=== PATIENT | female | born 1980 | race American Indian/Alaskan Native ===

== ENCOUNTER 2018-01-13 07:47 | Emergency (ER) | payer SELFPAY ==
[2018-01-13] MEDS ORDERED: TORADOL IM ONE (10:46)
[2018-01-13] MEDS ORDERED: NORCO 7.5/325 PO ONE (10:46)
--- NOTE | 2018-01-13 10:51 | Emergency Department Report ---
ED Upper Extremity Inj HPI - General Chief Complaint: Extremity Injury, Upper Stated Complaint: RIGHT ARM INJURY Time Seen by Provider: 01/13/18 10:46 Source: patient Mode of arrival: Ambulatory Limitations: No Limitations - History of Present Illness Initial Comments: This is a 37-year-old male nontoxic, well nourished in appearance, no acute signs of distress presents to the ED with c/o of acute on chronic right elbow pain she has a history of elbow fracture and yesterday has been working at [employer] [address] and was lifting boxes and developed pain. Patient denies any direct trauma. Patient denies any radiation of pain. Patient stated has decreased range of motion due to pain. Patient denies any joint redness, joint swelling, fever, chills, nausea, vomiting, chest pain or shortness breath. Patient denies abnormal or decreased gait. Patient denies any allergies or PMH. MD Complaint: Injury to:: right, elbow -: days(s) (1) Other Extremity Injury: Elbow: Right Other Injuries: none Place: work Severity scale (0 -10): 8 Improves With: immobilization Worsens With: movement of extremity Associated Symptoms: denies other symptoms. denies: weakness, numbness, neck pain, suspects foreign body, nausea/vomiting, heard/felt popping sensat - Related Data Previous Rx's Medication Instructions Recorded Last Taken Type HYDROcodone/APAP 5-325 [[place] 1 each PO Q8HR PRN #12 tablet 11/07/13 Unknown Rx 5-325 mg TAB] Ibuprofen [Motrin] 800 mg PO Q8HR PRN #10 tablet 09/26/15 Unknown Rx Promethazine /Codeine 5 ml PO Q6H PRN #90 ml 09/26/15 Unknown Rx [Phenergan/Codeine 6.25-10 mg/5Ml] guaiFENesin [Mucinex] 600 mg PO Q6HR PRN #15 tablet.er 09/26/15 Unknown Rx Acetaminophen/Codeine [Tylenol #3] 1 tab PO Q6H PRN #15 tab 10/06/15 Unknown Rx Cephalexin [Keflex] 500 mg PO Q12HR #14 cap 10/06/15 Unknown Rx Acetaminophen/Codeine [Tylenol 1 tab PO Q6H PRN #15 tab 01/13/18 Unknown Rx /Codeine # 3 tab] Ibuprofen [Motrin] 600 mg PO Q8H PRN #30 tablet 01/13/18 Unknown Rx Allergies Allergy/AdvReac Type Severity Reaction Status Date / Time No Known Allergies Allergy Unverified 11/07/13 13:25 ED Review of Systems ROS: Stated complaint: RIGHT ARM INJURY Other details as noted in HPI Constitutional: denies: chills, fever Eyes: denies: eye pain, eye discharge, vision change ENT: denies: ear pain, throat pain Respiratory: denies: cough, shortness of breath, wheezing Cardiovascular: denies: chest pain, palpitations Endocrine: no symptoms reported Gastrointestinal: denies: abdominal pain, nausea, diarrhea Genitourinary: denies: urgency, dysuria, discharge Musculoskeletal: arthralgia. denies: back pain, joint swelling Skin: denies: rash, lesions Neurological: denies: headache, weakness, paresthesias Psychiatric: denies: anxiety, depression Hematological/Lymphatic: denies: easy bleeding, easy bruising ED Past Medical Hx - Past Medical History Previous Medical History?: Yes Additional medical history: right arm injury - Surgical History Past Surgical History?: Yes Additional Surgical History: right arm - Social History Smoking Status: Current Every Day Smoker Substance Use Type: Alcohol - Medications Home Medications: Home Medications Medication Instructions Recorded Confirmed Last Taken Type HYDROcodone/APAP 5-325 [[place] 1 each PO Q8HR PRN #12 tablet 11/07/13 Unknown Rx 5-325 mg TAB] Ibuprofen [Motrin] 800 mg PO Q8HR PRN #10 tablet 09/26/15 Unknown Rx Promethazine /Codeine 5 ml PO Q6H PRN #90 ml 09/26/15 Unknown Rx [Phenergan/Codeine 6.25-10 mg/5Ml] guaiFENesin [Mucinex] 600 mg PO Q6HR PRN #15 tablet.er 09/26/15 Unknown Rx Acetaminophen/Codeine [Tylenol #3] 1 tab PO Q6H PRN #15 tab 10/06/15 Unknown Rx Cephalexin [Keflex] 500 mg PO Q12HR #14 cap 10/06/15 Unknown Rx Acetaminophen/Codeine [Tylenol 1 tab PO Q6H PRN #15 tab 01/13/18 Unknown Rx /Codeine # 3 tab] Ibuprofen [Motrin] 600 mg PO Q8H PRN #30 tablet 01/13/18 Unknown Rx ED Physical Exam - General Limitations: No Limitations General appearance: alert, in no apparent distress - Head Head exam: Present: atraumatic, normocephalic - Eye Eye exam: Present: normal appearance Pupils: Present: normal accommodation - ENT ENT exam: Present: normal exam, mucous membranes moist - Neck Neck exam: Present: normal inspection, full ROM. Absent: tenderness, meningismus, lymphadenopathy - Respiratory Respiratory exam: Present: normal lung sounds bilaterally. Absent: respiratory distress, wheezes, rales, rhonchi, stridor - Cardiovascular Cardiovascular Exam: Present: regular rate, normal rhythm, normal heart sounds. Absent: irregular rhythm, systolic murmur, diastolic murmur, rubs, gallop - GI/Abdominal GI/Abdominal exam: Present: soft, normal bowel sounds - Extremities Exam Extremities exam: Present: normal inspection, full ROM, tenderness, normal capillary refill. Absent: joint swelling - Expanded Upper Extremity Exam Right General: Present: normal inspection Shoulder Exam: Present: normal inspection, full ROM. Absent: tenderness, swelling, abrasion, laceration, ecchymosis, deformity, crepidus, dislocation, erythema, tenderness over AC joint Upper Arm exam: Present: normal inspection, full ROM. Absent: tenderness, swelling, abrasion, laceration, ecchymosis, deformity, crepidus, dislocation, erythema Elbow exam: Present: normal inspection, full ROM (with pain), tenderness. Absent: swelling, abrasion, laceration, ecchymosis, deformity, crepidus, dislocation, erythema, effusion, pain w/ pronation/supination, tenderness over radial head Forearm Wrist exam: Present: normal inspection, full ROM. Absent: tenderness, swelling, abrasion, laceration, ecchymosis, deformity, crepidus, dislocation, erythema, tenderness over anatomical snuff box, pain with axial thumb loading Hand Wrist exam: Present: normal inspection, full ROM. Absent: tenderness, swelling Neuro motor exam: Present: wrist extension intact, thumb opposition intact, thumb IP flexion intact, thumb adduction intact, fingers 2-5 abduction intact Neurosensory exam: Present: 2-point discrimination, radial nerve intact, ulnar nerve intact Vascular: Present: vascular compromise, normal capillary refill, radial pulse, brachial pulse, ulnar pulse - Back Exam Back exam: Present: normal inspection, full ROM - Neurological Exam Neurological exam: Present: alert, oriented X3, normal gait - Psychiatric Psychiatric exam: Present: normal affect, normal mood - Skin Skin exam: Present: warm, dry, intact, normal color. Absent: rash ED Course Vital Signs 01/13/18 08:20 Temperature 98.2 F Pulse Rate 88 Respiratory 20 Rate Blood Pressure 148/83 O2 Sat by Pulse 100 Oximetry - Reevaluation(s) Reevaluation #1: 01/13/18 10:51 Patient is speaking in full sentences with no signs of distress noted. ED Medical Decision Making - Medical Decision Making This is a 37-year-old female that presents with right elbow strain. Patient is stable and was examined by me. I referred patient to an orthopedic doctor for further evaluation for possible MRI. X-ray has been obtained and dictated by the radiologist. Patient is notified of the x-ray report with noted by the patient. Patient does have normal ROM with slight pain discomfort and with no tenderness and no joint swelling. No ecchymosis. no joint redness or swelling. Not warm to touch. No signs of cellulites present. Patient received a shoulder sling for pain comfort. Patient was instructed to RICE therapy. Patient received Toradol and [place] for pain. Patients family member is at bedside and stated she will drive the patient home after discharge due to possible drowsiness of [place]. Patient is discharged with Motrin. At time of discharge, the patient does not seem toxic or ill in appearance. No acute signs of distress noted. Patient agrees to discharge treatment plan of care. No further questions noted by the patient. Critical care attestation.: If time is entered above; I have spent that time in minutes in the direct care of this critically ill patient, excluding procedure time. ED Disposition Clinical Impression: Strain of right elbow Qualifiers: Encounter type: initial encounter Qualified Code(s): S56.911A - Strain of unspecified muscles, fascia and tendons at forearm level, right arm, initial encounter Disposition: - TO HOME OR SELFCARE Is pt being admited?: No Does the pt Need Aspirin: No Condition: Stable Instructions: RICE Therapy (ED), Ibuprofen (By mouth), Acetaminophen/Codeine ( By mouth) Additional Instructions: Follow-up with a orthopedic doctor in 3-5 days or if symptoms worsen and continue return to emergency room as soon as possible. Do not operate any machinery when you are taking Tylenol with codeine as this can cause drowsiness. Prescriptions: Acetaminophen/Codeine [Tylenol /Codeine # 3 tab] 1 tab PO Q6H PRN #15 tab PRN Reason: Pain Ibuprofen [Motrin] 600 mg PO Q8H PRN #30 tablet PRN Reason: Pain Referrals: PRIMARY CAREMD [Primary Care Provider] - 3-5 Days ALIE BOWMAN MD [Staff Physician] - 3-5 Days [facility] [Outside] - 3-5 Days [facility] [Outside] - 3-5 Days Forms: Work/School Release Form(ED)
--- NOTE | 2018-01-13 12:58 | XRay Report ---
RIGHT ELBOW RADIOGRAPHS INDICATION: Elbow pain. COMPARISON: 11/07/2013. FINDINGS: Attempted AP, lateral and oblique right elbow radiographs again suggest chronic arthropathic changes with spurring/possible deformity of the coronoid process and also the olecranon. Medial and lateral epicondyles of the humerus appear intact. Radial head deformity/possible postsurgical absence again noted. Elbow articulation grossly intact. No convincing abnormal elbow fat pad sign, though mild diffuse elbow soft tissue swelling not excluded. CONCLUSION: Chronic right elbow changes again noted, as described without definite acute bony abnormality or dislocation, as described. Please correlate. Thank you for the opportunity to participate in this patient's care.
[2018-01-13 14:03] VITALS: BP 107/60
== END 2018-01-13 14:03 | disposition home or self-care (01) ==
LOC: ED 07:47
DX: S56.911A Strain of unspecified muscles, fascia and tendons at forearm level, right arm, initial encounter (principal); F17.200 Nicotine dependence, unspecified, uncomplicated; X50.0XXA Overexertion from strenuous movement or load, initial encounter; Y93.89 Activity, other specified; Y92.89 Other specified places as the place of occurrence of the external cause; Y99.8 Other external cause status
CPT/HCPCS: 73080; 96372; 99284; J1885

== ENCOUNTER 2018-11-12 01:41 | Emergency (ER) | payer SELFPAY ==
[2018-11-12 02:41] VITALS: BP 115/72
--- NOTE | 2018-11-12 05:04 | Emergency Department Report ---
ED General Adult HPI - General Chief complaint: Eye Problems Stated complaint: EYE/THROAT PAIN Time Seen by Provider: 11/12/18 04:52 Source: patient Mode of arrival: Ambulatory Limitations: No Limitations - History of Present Illness Initial comments: Pt is a 38 yo female who presents to the ED with c/o itchy water eyes that began three days ago. She has associated frontal BRADY, sinus pressure, and itchy throat. She denies any fever or rhinorrhea. The patient states she has a hx of seasonal allergies. She has been taking benadryl without much relief. Severity scale (0 -10): 10 - Related Data Previous Rx's Medication Instructions Recorded Last Taken Type Ibuprofen [Motrin 800 MG tab] 800 mg PO Q8HR PRN #10 tablet 09/26/15 Unknown Rx guaiFENesin [Mucinex] 600 mg PO Q6HR PRN #15 tablet.er 09/26/15 Unknown Rx Ibuprofen [Motrin 600 MG tab] 600 mg PO Q8H PRN #30 tablet 01/13/18 Unknown Rx Cetirizine HCl [ZyrTEC] 10 mg PO DAILY #30 tab.rapdis 11/12/18 Unknown Rx Fluticasone [Flonase] 1 spray NS QDAY #1 bottle 11/12/18 Unknown Rx Allergies Allergy/AdvReac Type Severity Reaction Status Date / Time No Known Allergies Allergy Unverified 11/07/13 13:25 ED Review of Systems ROS: Stated complaint: EYE/THROAT PAIN Other details as noted in HPI Comment: All other systems reviewed and negative ED Past Medical Hx - Past Medical History Previous Medical History?: Yes Additional medical history: right arm injury - Surgical History Additional Surgical History: right arm - Social History Smoking Status: Current Every Day Smoker Substance Use Type: Alcohol - Medications Home Medications: Home Medications Medication Instructions Recorded Confirmed Last Taken Type Ibuprofen [Motrin 800 MG tab] 800 mg PO Q8HR PRN #10 tablet 09/26/15 Unknown Rx guaiFENesin [Mucinex] 600 mg PO Q6HR PRN #15 tablet.er 09/26/15 Unknown Rx Ibuprofen [Motrin 600 MG tab] 600 mg PO Q8H PRN #30 tablet 01/13/18 Unknown Rx Cetirizine HCl [ZyrTEC] 10 mg PO DAILY #30 tab.rapdis 11/12/18 Unknown Rx Fluticasone [Flonase] 1 spray NS QDAY #1 bottle 11/12/18 Unknown Rx ED Physical Exam - General Limitations: No Limitations General appearance: alert, in no apparent distress - Head Head exam: Present: atraumatic, normocephalic - Eye Eye exam: Present: normal appearance, PERRL, EOMI, other (no drainage, crusting, or matting of the eyelashes). Absent: scleral icterus, conjunctival injection, nystagmus, periorbital swelling, periorbital tenderness - ENT ENT exam: Present: normal orophraynx, other (left turbinate is pale and boggy, no purulent drainage, no sinus TTP bilaterally) - Respiratory Respiratory exam: Present: normal lung sounds bilaterally. Absent: respiratory distress, wheezes, rales, rhonchi, stridor, chest wall tenderness, accessory muscle use, decreased breath sounds, prolonged expiratory - Cardiovascular Cardiovascular Exam: Present: regular rate, normal rhythm, normal heart sounds. Absent: systolic murmur, diastolic murmur, rubs, gallop - Neurological Exam Neurological exam: Present: alert, oriented X3 - Psychiatric Psychiatric exam: Present: normal affect, normal mood - Skin Skin exam: Present: warm, dry, intact ED Course Vital Signs 11/12/18 01:46 Temperature 98.5 F Pulse Rate 95 H Respiratory 18 Rate Blood Pressure 115/72 O2 Sat by Pulse 98 Oximetry ED Medical Decision Making - Medical Decision Making Pt is a 38 yo female who presents to the ED with c/o itchy water eyes that began three days ago. She has associated frontal BRADY, sinus pressure, and itchy throat. She denies any fever or rhinorrhea. The patient states she has a hx of seasonal allergies. She has been taking benadryl without much relief. examination consistent with seasonal allergies and allergic rhinitis. VSS. no sinus TTP no purulent drainage from the bilateral nares, no conjunctival injection or drainage, no fever. Will give pt zyrtec and flonase. Advised pt to follow up with her PCP in the next 2-3 days. Return to the ED for any new or worsening symptoms. - Differential Diagnosis allergic rhinits, seasonal allergies, conjunctivitis, URI Critical care attestation.: If time is entered above; I have spent that time in minutes in the direct care of this critically ill patient, excluding procedure time. ED Disposition Clinical Impression: Seasonal allergies Allergic rhinitis Qualifiers: Allergic rhinitis trigger: pollen Allergic rhinitis seasonality: seasonal Qualified Code(s): J30.1 - Allergic rhinitis due to pollen Disposition: DC- TO HOME OR SELFCARE Is pt being admited?: No Does the pt Need Aspirin: No Condition: Stable Instructions: Allergies (ED), Allergic Rhinitis (ED) Additional Instructions: Please use medication as prescribed. Take tylenol or ibuprofen as needed. Follow up with your primary care doctor in the next 2-3 days. Return to the emergency room for any new or worsening symptoms. Prescriptions: Fluticasone [Flonase] 1 spray NS QDAY #1 bottle Cetirizine HCl [ZyrTEC] 10 mg PO DAILY #30 tab.rapdis Referrals: MARY TERAN MD [Primary Care Provider] - 2-3 Days Time of Disposition: 05:05 Print Language: BOTSWANAN
== END 2018-11-12 05:18 | disposition home or self-care (01) ==
LOC: ED 01:41
DX: J30.2 Other seasonal allergic rhinitis (principal); J30.9 Allergic rhinitis, unspecified; F17.200 Nicotine dependence, unspecified, uncomplicated
CPT/HCPCS: 99282

== ENCOUNTER 2019-01-12 11:21 | Emergency (ER) | payer OTHER ==
[2019-01-12 11:32] VITALS: BP 135/82
--- NOTE | 2019-01-12 11:45 | Emergency Department Report ---
ED General Adult HPI - General Chief complaint: Nausea/Vomiting/Diarrhea Stated complaint: VOMITTING/DIARRHEA Time Seen by Provider: 01/12/19 11:41 Source: patient Mode of arrival: Ambulatory Limitations: No Limitations - Related Data Previous Rx's Medication Instructions Recorded Last Taken Type Ibuprofen [Motrin 800 MG tab] 800 mg PO Q8HR PRN #10 tablet 09/26/15 Unknown Rx guaiFENesin [Mucinex] 600 mg PO Q6HR PRN #15 tablet.er 09/26/15 Unknown Rx Ibuprofen [Motrin 600 MG tab] 600 mg PO Q8H PRN #30 tablet 01/13/18 Unknown Rx Cetirizine HCl [ZyrTEC] 10 mg PO DAILY #30 tab.rapdis 11/12/18 Unknown Rx Fluticasone [Flonase] 1 spray NS QDAY #1 bottle 11/12/18 Unknown Rx Ondansetron [Zofran ODT TAB] 8 mg PO Q12HR #14 tab.rapdis 01/12/19 Unknown Rx Allergies Allergy/AdvReac Type Severity Reaction Status Date / Time Latex, Natural Rubber Allergy Rash Verified 01/12/19 11:24 ED Review of Systems ROS: Stated complaint: VOMITTING/DIARRHEA Other details as noted in HPI ED Past Medical Hx - Past Medical History Previous Medical History?: No Additional medical history: right arm injury - Surgical History Past Surgical History?: Yes Additional Surgical History: right arm - Social History Smoking Status: Never Smoker Substance Use Type: None - Medications Home Medications: Home Medications Medication Instructions Recorded Confirmed Last Taken Type Ibuprofen [Motrin 800 MG tab] 800 mg PO Q8HR PRN #10 tablet 09/26/15 Unknown Rx guaiFENesin [Mucinex] 600 mg PO Q6HR PRN #15 tablet.er 09/26/15 Unknown Rx Ibuprofen [Motrin 600 MG tab] 600 mg PO Q8H PRN #30 tablet 01/13/18 Unknown Rx Cetirizine HCl [ZyrTEC] 10 mg PO DAILY #30 tab.rapdis 11/12/18 Unknown Rx Fluticasone [Flonase] 1 spray NS QDAY #1 bottle 11/12/18 Unknown Rx Ondansetron [Zofran ODT TAB] 8 mg PO Q12HR #14 tab.rapdis 01/12/19 Unknown Rx ED Physical Exam - General Limitations: No Limitations General appearance: alert, in no apparent distress - Head Head exam: Present: atraumatic, normocephalic - Eye Eye exam: Present: normal appearance - ENT ENT exam: Present: mucous membranes moist - Neck Neck exam: Present: normal inspection - Respiratory Respiratory exam: Present: normal lung sounds bilaterally. Absent: respiratory distress - Cardiovascular Cardiovascular Exam: Present: regular rate, normal rhythm. Absent: systolic murmur, diastolic murmur, rubs, gallop - GI/Abdominal GI/Abdominal exam: Present: soft, normal bowel sounds - Extremities Exam Extremities exam: Present: normal inspection - Back Exam Back exam: Present: normal inspection - Neurological Exam Neurological exam: Present: alert, oriented X3 - Psychiatric Psychiatric exam: Present: normal affect, normal mood - Skin Skin exam: Present: warm, dry, intact, normal color. Absent: rash ED Course Vital Signs 01/12/19 11:30 Temperature 98.3 F Pulse Rate 80 Respiratory 16 Rate Blood Pressure 135/82 [Left] O2 Sat by Pulse 100 Oximetry Critical care attestation.: If time is entered above; I have spent that time in minutes in the direct care of this critically ill patient, excluding procedure time. ED Disposition Clinical Impression: H/O nausea and vomiting Disposition: DC-01 TO HOME OR SELFCARE Is pt being admited?: No Does the pt Need Aspirin: No Condition: Stable Instructions: Acute Nausea and Vomiting (ED) Referrals: [facility] [Provider Group] - 3-5 Days Forms: Work/School Release Form(ED)
== END 2019-01-12 12:01 | disposition home or self-care (01) ==
LOC: ED 11:21
DX: R11.2 Nausea with vomiting, unspecified (principal); Z79.899 Other long term (current) drug therapy
CPT/HCPCS: 99282

== ENCOUNTER 2021-06-11 20:52 | Emergency (ER) | payer SELFPAY ==
--- NOTE | 2021-06-11 22:04 | Emergency Department Report ---
ED Psych HPI - General Chief Complaint: Psych Stated Complaint: 1013/MH Time Seen by Provider: 06/11/21 21:46 Source: police Mode of arrival: Ambulatory - History of Present Illness Initial Comments: Patient is 40 years old female with no significant past medical history. Patient brought to the emergency room by police for mental health evaluation. Patient was found in walking in the middle of the street. Patient stated that she trying to kill herself. Patient stated that she lost her peripheral vision 3 months ago and does make her very depressed. Patient denied any history of depression or bipolar or any psychiatric problem before. She also denied any auditory or visual hallucination. No homicidal ideation. MD Complaint: suicidal ideation, feels depressed Associated Psychiatric Symptoms: depression, suicidal ideation - Related Data Previous Rx's Medication Instructions Recorded Last Taken Type Ibuprofen [Motrin 800 MG tab] 800 mg PO Q8HR PRN #10 tablet 09/26/15 Unknown Rx guaiFENesin [Mucinex] 600 mg PO Q6HR PRN #15 tablet.er 09/26/15 Unknown Rx Ibuprofen [Motrin 600 MG tab] 600 mg PO Q8H PRN #30 tablet 01/13/18 Unknown Rx Cetirizine HCl [ZyrTEC] 10 mg PO DAILY #30 tab.rapdis 11/12/18 Unknown Rx Fluticasone [Flonase] 1 spray NS QDAY #1 bottle 11/12/18 Unknown Rx Ondansetron [Zofran ODT TAB] 8 mg PO Q12HR #14 tab.rapdis 01/12/19 Unknown Rx Allergies Allergy/AdvReac Type Severity Reaction Status Date / Time Latex, Natural Rubber Allergy Rash Verified 01/12/19 11:24 ED Review of Systems ROS: Stated complaint: 1013/MH Other details as noted in HPI Comment: All other systems reviewed and negative Constitutional: denies: chills, fever Respiratory: denies: cough, shortness of breath, SOB with exertion Cardiovascular: denies: chest pain, palpitations Gastrointestinal: denies: abdominal pain, nausea, vomiting, diarrhea, constipation, hematemesis, hematochezia Musculoskeletal: denies: back pain Psychiatric: depression, suicidal thoughts. denies: auditory hallucinations, visual hallucinations, homicidal thoughts ED Past Medical Hx - Past Medical History Previous Medical History?: Yes Additional medical history: right arm injury - Surgical History Additional Surgical History: right arm - Social History Smoking Status: Never Smoker Substance Use Type: None - Medications Home Medications: Home Medications Medication Instructions Recorded Confirmed Last Taken Type Ibuprofen [Motrin 800 MG tab] 800 mg PO Q8HR PRN #10 tablet 09/26/15 Unknown Rx guaiFENesin [Mucinex] 600 mg PO Q6HR PRN #15 tablet.er 09/26/15 Unknown Rx Ibuprofen [Motrin 600 MG tab] 600 mg PO Q8H PRN #30 tablet 01/13/18 Unknown Rx Cetirizine HCl [ZyrTEC] 10 mg PO DAILY #30 tab.rapdis 11/12/18 Unknown Rx Fluticasone [Flonase] 1 spray NS QDAY #1 bottle 11/12/18 Unknown Rx Ondansetron [Zofran ODT TAB] 8 mg PO Q12HR #14 tab.rapdis 01/12/19 Unknown Rx ED Physical Exam - General Limitations: No Limitations General appearance: alert, anxious, other (Depressed) - Head Head exam: Present: atraumatic, normocephalic, normal inspection - Eye Eye exam: Present: normal appearance, PERRL - ENT ENT exam: Present: normal exam, normal orophraynx, mucous membranes moist - Neck Neck exam: Present: normal inspection, full ROM. Absent: tenderness, meningismus - Respiratory Respiratory exam: Present: normal lung sounds bilaterally. Absent: respiratory distress, wheezes, rales, rhonchi, chest wall tenderness - Cardiovascular Cardiovascular Exam: Present: regular rate, normal rhythm, normal heart sounds - GI/Abdominal GI/Abdominal exam: Present: soft, normal bowel sounds. Absent: distended, tenderness, guarding, rebound, rigid, organomegaly, mass, bruit, pulsatile mass, hernia - Extremities Exam Extremities exam: Present: normal inspection, full ROM, normal capillary refill. Absent: tenderness - Back Exam Back exam: Present: normal inspection, full ROM. Absent: CVA tenderness (R), CVA tenderness (L) - Neurological Exam Neurological exam: Present: alert, oriented X3, CN II-XII intact, normal gait, reflexes normal. Absent: motor sensory deficit - Psychiatric Psychiatric exam: Present: depressed, suicidal ideation. Absent: agitated, anxious, flat affect, manic, homicidal ideation - Skin Skin exam: Present: warm, dry, intact, abrasion ED Course Vital Signs 06/11/21 06/11/21 06/12/21 22:41 22:47 08:09 Temperature 98.9 F 97.6 F Pulse Rate 90 84 Respiratory 18 20 Rate Blood Pressure 118/76 110/63 [Left] O2 Sat by Pulse 98 100 100 Oximetry 06/12/21 09:27 Temperature Pulse Rate Respiratory Rate Blood Pressure [Left] O2 Sat by Pulse 100 Oximetry ED Medical Decision Making - Lab Data Result diagrams: 06/11/21 22:36 06/11/21 22:36 Critical care attestation.: If time is entered above; I have spent that time in minutes in the direct care of this critically ill patient, excluding procedure time. ED Disposition Clinical Impression: Depression Qualifiers: Depression Type: unspecified Qualified Code(s): F32.A - Depression, unspecified Disposition: 01 HOME / SELF CARE / HOMELESS Is pt being admited?: No Condition: Stable Instructions: Living With Depression Additional Instructions: Professional and Agency Contacts To help Resolve Crises(02/03) [place] Crisis Line: Suicide Prevention Line: Crisis Text Line: Text START to 117331 Emergency: 911 Outpatient COMMUNITY Behavioral Health Resources: DEKALB: [facility] [address] [place], [place] [address] [address] [facility] - [address] [place] [address] Thursday thru Thursday - 8am - 5pm [facility] Address: [address], [place] [address] KATIE: [facility] Address: [address] [place] [address] Thursday thru Thursday- 7am-2pm [facility] Address: [address] [place] [address] Thursday thru Thursday: 8:30AM-5PM OUTPATIENT [facility]ENTAL HE[facility] RESOURCES [address], [place] [address] [facility] [place]: [address] [place] [address] [facility]: [address] [place] [address] [place] [address] [phone] [facility]: [address] [place] [address] [facility]: [address] [facility] [address] [facility] [address] [facility]: [address] [place], [place] Dean Marmolejo MD: [address] [facility] [address] [facility]: [address] [place] [address] [phone] [place] CRISIS AND ACCESS LINE: * Drink plenty water. Return for problems. Follow-up as directed by behavioral health. Referrals: FAISAL KEY MD [Staff Physician] - 3-5 Days PRIMARY CAREMD [Primary Care Provider] - 3-5 Days
[2021-06-11 23:03] LABS: Basophils % (Auto) 0.4 % (0.0-1.8); Eosinophils % (Auto) 0.3 % (0.0-4.3); Hematocrit 39.2 % (30.3-42.9); Hemoglobin 12.6 gm/dl (10.1-14.3); Lymphocytes # (Auto) 1.4 K/mm3 (1.2-5.4); Lymphocytes % (Auto) 15.7 % (13.4-35.0); Mean Corpuscular HGB Conc 32 % (30-34); Mean Corpuscular Volume 92 fl (79-97); Monocytes # (Auto) 0.6 K/mm3 (0.0-0.8); Monocytes % (Auto) 6.3 % (0.0-7.3); Platelet Count 261 K/mm3 (140-440); Red Blood Count 4.27 M/mm3 (3.65-5.03); Red Cell Distribution Width 12.2 % (13.2-15.2)
[2021-06-11 23:24] LABS: BUN/Creatinine Ratio 15; Blood Urea Nitrogen 12 mg/dL (7-17); Calcium 9.6 mg/dL (8.4-10.2); Hemolysis Index 5
[2021-06-12] MEDS ORDERED: IBUPROFEN 600 MG TAB PO ONE ×2 (00:08→11:56)
[2021-06-12 08:02] LABS: Amphetamine Screen,Urine Negative; Benzodiazepines Screen,Urine Negative; Cocaine Screen,Urine Negative; Methadone Screen,Urine Negative; Opiate Screen,Urine Negative
[2021-06-12 08:10] VITALS: BP 110/63
[2021-06-12 08:16] LABS: Amorphous Crystals,Urine 3+; Bilirubin,Urine NEG (Negative); Blood,Urine NEG (Negative); Color,Urine Yellow (Yellow); Urobilinogen,Urine < 2.0 mg/dL (<2.0)
[2021-06-12 08:18] LABS: Cannabinoid Screen,Urine Positive
[2021-06-12 08:20] LABS: RBC,Urine < 1.0 /HPF (0.0-6.0); WBC,Urine < 1.0 /HPF (0.0-6.0)
--- NOTE | 2021-06-12 10:30 | Emergency Department Report ---
Blank Doc - Documentation Documentation: Patient is here with depression and suicidal thoughts. We are currently waiting psychiatric evaluation. Labs have been reviewed. She is medically cleared. We will arrange disposition once psychiatric services has evaluated the patient.
--- NOTE | 2021-06-12 11:17 | Consultation ---
History of Present Illness - Reason for Consult Consult date: 06/12/21 Reason for consult: Mental health evaluation - History of Present Psychiatric Illness ED Note: Patient is 40 years old female with no significant past medical history. Patient brought to the emergency room by police for mental health evaluation. Patient was found in walking in the middle of the street. Patient stated that she trying to kill herself. Patient stated that she lost her peripheral vision 3 months ago and does make her very depressed. Patient denied any history of depression or bipolar or any psychiatric problem before. She also denied any auditory or visual hallucination. No homicidal ideation. Vaensa Mao a 40 year old female with no psychiatric history who presents to the Ed for mental health evaluation. In my interview with the patient, she is calm, alert and oriented x4. The patient reports stressor such as her recent d iagnosis of Glaucoma, and being unemployed due to issues with her sight. The patient endorses depression stating she is not able to things that she normal was able to do and that had an episode yesterday because she felt that people will be better without her. She is not receptive to starting psychotropic medications at this time but states she would prefer therapy. The patient denies any current suicidal/homicidal ideation and denies hallucinations. PAST PSYCHIATRIC HISTORY Diagnoses: Denies Suicide attempts or Self-harm behavior: Denies Prior psychiatric hospitalizations: Denies Substance Abuse history: marijuana Previous psychiatric medications tried: Denies Outpatient treatment: denies PAST MEDICAL HISTORY: Family Psychiatric History: None reported or documented SOCIAL HISTORY Marital Status: Single Living Arrangements:Lives with mother Employment Status: Unemployed Access to guns/weapons:Denies Education: 12th grade History of Abuse: None reported Legal History: Unknown REVIEW OF SYSTEMS Constitutional: Negative for weight loss ENT: Negative for stridor Respiratory: Negative for cough or hemoptysis All other systems reviewed and are negative MENTAL STATUS EXAMINATION General Appearance and Behavior: Age appropriate, good hygiene, wearing appropriate clothes, good eye contact, cooperative with questioning Cooperation: Participating/engaged Psychomotor Behavior: unremarkable and within normal limits Mood:depressed Affect and affective range: congruent with mood Thought Process:goal directed Thought Content: Not suicidal Speech: Normal volume, Regular rate and rhythm. Intellectual Functioning: Average Suicidal Ideation: Denies Homicidal Ideation: Denies Hallucinations: Denies Delusions: None elicited Impulse Control: Limited Insight and Judgment: limited insight and poor judgment Memory: Normal Attention: Normal Orientation: Alert, oriented. Assessment and Plan (1) Major depressive disorder - Current Visit: No Status: Acute RECOMMENDATIONS Discontinue 1013 Risks, benefits and alternatives of medications discussed with the patient, questions answered and consent obtained from patient. PSYCHOTHERAPY: Supportive psychotherapy provided MEDICAL: Per primary team DELIRIUM PRECAUTIONS: Please re-orient patient frequently, keep lights on during the day, and minimize benzodiazepines and opiates as these medications could worsen patient's confusion. LACQUER SHADER: non indicated DISPOSITION: Do not recommend acute inpatient psychiatric hospitalization at this time. Police Justice with provide patient with safety plan and psychiatric outpatient resources. FOLLOW-UP: Will sign off. Thank you for the consult. Please contact with any questions and/or concerns. Medications and Allergies Medications and Allergies Allergies Allergy/AdvReac Type Severity Reaction Status Date / Time Latex, Natural Rubber Allergy Rash Verified 01/12/19 11:24 Home Medications Medication Instructions Recorded Confirmed Last Taken Type Ibuprofen [Motrin 800 MG tab] 800 mg PO Q8HR PRN #10 tablet 09/26/15 Unknown Rx guaiFENesin [Mucinex] 600 mg PO Q6HR PRN #15 tablet.er 09/26/15 Unknown Rx Ibuprofen [Motrin 600 MG tab] 600 mg PO Q8H PRN #30 tablet 01/13/18 Unknown Rx Cetirizine HCl [ZyrTEC] 10 mg PO DAILY #30 tab.rapdis 11/12/18 Unknown Rx Fluticasone [Flonase] 1 spray NS QDAY #1 bottle 11/12/18 Unknown Rx Ondansetron [Zofran ODT TAB] 8 mg PO Q12HR #14 tab.rapdis 01/12/19 Unknown Rx Mental Status Exam - Vital signs Last Vital Signs Temp 97.6 F 06/12/21 08:09 Pulse 84 06/12/21 08:09 Resp 20 06/12/21 08:09 BP 110/63 06/12/21 08:09 Pulse Ox 100 06/12/21 09:27 Results Result Diagrams: 06/11/21 22:36 06/11/21 22:36 Abnormal lab results 06/11/21 06/11/21 06/11/21 Range/Units 22:36 22:36 22:36 RDW 12.2 L (13.2-15.2) % Seg Neutrophils % 77.3 H (40.0-70.0) % Carbon Dioxide 21 L (22-30) mmol/L Ur Specific [place] (1.003-1.030) Salicylates < 0.3 L (2.8-20.0) mg/dL Acetaminophen (10.0-30.0) ug/mL 06/11/21 06/12/21 Range/Units 22:36 07:36 RDW (13.2-15.2) % Seg Neutrophils % (40.0-70.0) % Carbon Dioxide (22-30) mmol/L Ur Specific [place] 1.032 H (1.003-1.030) Salicylates (2.8-20.0) mg/dL Acetaminophen 5.0 L (10.0-30.0) ug/mL All other labs normal.
== END 2021-06-12 13:28 | disposition home or self-care (01) ==
LOC: ED 20:52
DX: F32.A Depression, unspecified (principal); Z20.822 Contact with and (suspected) exposure to COVID-19
CPT/HCPCS: 36415; 80048; 80307; 81001; 84703; 85025; 99284; U0003; 80320; G0480